=== PATIENT | male | born 1940 | race Caucasian/White ===

== ENCOUNTER 2019-09-17 19:58 | Emergency (ER) | payer MEDICARE ==
[~2019-09-17] VITALS: Ht 170.2 cm; Wt 75.7 kg
[2019-09-17 20:04] VITALS: BP_SYST 168
--- NOTE | 2019-09-17 20:07 | NUR ---
Patient to ER bed 03 for evaluation. Side rails up.
--- NOTE | 2019-09-17 20:09 | NUR ---
Pt brought in by s ambulance. Pt awake, alert, oriented x4. Pt states that he had mechanical slip and fall while carrying a glass plate. Pt states that the plate broke and caused laceration. Pt denies KO, pt denies chest pain, nausea, vomiting, diarrhea, shortness of breath. pt denies any other medical complaint at this time. Pt states unknown tetanus status. Pt states only mild pain, 1.5" laceration present to frontal anterior scalp, bleeding controlled with x1 4x4 guaze pad. Pt vital signs stable, resting in ED bed with no acute signs of distress.
[2019-09-17] MEDS ORDERED: DIPH-TET-PERTUS Vaccine 0.5 ML VIAL (ADACEL) I.M. ONE (21:00)
[2019-09-17] MEDS ORDERED: LIDOCAINE/EPI 1% 1:100000 20 ML VIAL INJ ONE (21:00)
--- NOTE | 2019-09-17 21:10 | NUR ---
Er MD [facility] bedside performing suture repair of laceration
[2019-09-17] MEDS ORDERED: BACITRACIN 1 GM OINT TP ONE (21:30)
[2019-09-17] MEDS ORDERED: HYDROcodone/ACETAMIN 5-325 MG TAB (NORCO/ VICODIN) PO ONE (21:45)
--- NOTE | 2019-09-17 21:50 | NUR ---
Pt off unit for CT head, transported to radiology via gurney, accompanied by echo tech
--- NOTE | 2019-09-17 22:01 | NUR ---
back from ct. resting in ED bed comfortably.
[2019-09-17 22:30] VITALS: BP_SYST 140
--- NOTE | 2019-09-17 22:30 | NUR ---
Patient given written and verbal discharge instructions and verbalizes understanding. ER MD discussed with patient the results and treatment provided. Patient in stable condition. ID arm band removed. NO IV. Wound dressed, no active bleeding no rx given. Patient educated on pain management and to follow up with PMD. Pain Scale 0/10. Opportunity for questions provided and answered.
== END 2019-09-17 22:30 | disposition home or self-care (01) ==
LOC: SED 19:58
DX: S01.01XA Laceration without foreign body of scalp, initial encounter (principal); I10 Essential (primary) hypertension; E78.00 Pure hypercholesterolemia, unspecified; W01.198A Fall on same level from slipping, tripping and stumbling with subsequent striking against other object, initial encounter; Y93.89 Activity, other specified; Y92.89 Other specified places as the place of occurrence of the external cause; Y99.8 Other external cause status
CPT/HCPCS: 70450-TC; 90715; 99284